=== PATIENT | female | born 1975 | race Caucasian/White ===

== ENCOUNTER 2022-06-23 14:09 | Emergency (ER) | payer MEDICAID ==
[~2022-06-23] VITALS: Ht 154.9 cm; Wt 52.0 kg
[2022-06-23 14:50] VITALS: BP 110/86
== END 2022-06-23 17:25 | disposition left against medical advice (07) ==
LOC: ER 14:09
DX: Z53.21 Procedure and treatment not carried out due to patient leaving prior to being seen by health care provider (principal)

== ENCOUNTER 2022-06-23 18:16 | Emergency (ER) | payer MEDICAID ==
[~2022-06-23] VITALS: Ht 154.9 cm; Wt 52.0 kg
[2022-06-23 19:30] LABS: HEMATOCRIT. 37.6 % (36.0-48.0); HEMOGLOBIN. 12.6 g/dL (12.0-16.0); MEAN CORPUSCULAR HEMOGLOBIN 29.7 pg (28.0-32.0); MEAN CORPUSCULAR VOLUME 88.5 fL (81.0-99.0); MEAN PLATELET VOLUME 7.4 fl (7.4-10.4); PLATELET 399 x1000/uL (130-400); RED BLOOD CELL COUNT 4.25 mill/uL (4.2-5.4); RED CELL DISTRIBUTION WIDTH 18.5 % (11.6-14.6)
[2022-06-23 19:38] LABS: CHLORIDE 105 mEq/L (98-107)
[2022-06-23 19:44] LABS: ETHANOL BLOOD 83 mg/dL
[2022-06-23 19:53] LABS: PLATELET ESTIMATE NORMAL
[2022-06-23] MEDS ORDERED: MAGNESIUM/ALUMINUM HYDROXIDE/SIMETHICONE 30ML UDC PO ONE (22:15)
[2022-06-23] MEDS ORDERED: ONDANSETRON 4MG ODT PO ONE (23:00)
[2022-06-24 00:14] LABS: *AMPHETAMINES SCREEN URINE PRESUMTIVE POSITIVE (NEGATIVE); *BARBITURATES SCREEN URINE NEGATIVE (NEGATIVE); *BENZODIAZEPINES SCREEN URINE NEGATIVE (NEGATIVE); *COCAINE SCREEN URINE NEGATIVE (NEGATIVE); CANNABINOID URINE SCREEN NEGATIVE (NEGATIVE); METHADONE URINE SCREEN NEGATIVE (NEGATIVE); OPIATES URINE SCREEN NEGATIVE (NEGATIVE); PHENCYCLIDINE URINE SCREEN NEGATIVE (NEGATIVE)
[2022-06-24 01:55] VITALS: BP 141/84
== END 2022-06-24 06:07 | disposition home or self-care (01) ==
LOC: ER 18:16
DX: F10.129 Alcohol abuse with intoxication, unspecified (principal); Y90.4 Blood alcohol level of 80-99 mg/100 ml; F15.10 Other stimulant abuse, uncomplicated
CPT/HCPCS: 36415; 80053; 80305; 80307; 80320; 80329; 85025; 99283; Q0162; G0480

== ENCOUNTER 2024-11-21 17:51 | Emergency (ER) | payer MEDICAID ==
[~2024-11-21] VITALS: Ht 167.6 cm; Wt 64.0 kg
[2024-11-21 17:53] VITALS: O2SAT 98
[2024-11-21] MEDS ORDERED: CLONIDINE 0.2MG TABLET PO ONE (18:00)
[2024-11-21 19:13] LABS: EOSINOPHILS % 6.6 % (0.0-5.0); HEMATOCRIT. 41.1 % (36.0-48.0); HEMOGLOBIN. 14.1 g/dL (12.0-16.0); LYMPHOCYTES % 29.4 % (20.0-50.0); MEAN CORPUSCULAR HEMOGLOBIN 30.3 pg (28.0-32.0); MEAN CORPUSCULAR HGB CONC 34.2 g/dL (31.0-37.0); MEAN CORPUSCULAR VOLUME 88.5 fL (81.0-99.0); MEAN PLATELET VOLUME 7.4 fl (7.4-10.4); PLATELET 328 x1000/uL (130-400); RED BLOOD CELL COUNT 4.65 mill/uL (4.2-5.4); RED CELL DISTRIBUTION WIDTH 14.4 % (11.6-14.6); WHITE BLOOD COUNT 5.5 x1000/uL (4.5-11.0)
[2024-11-21 19:19] LABS: CHLORIDE 101 mEq/L (98-107); SODIUM 141 mEq/L (136-145)
[2024-11-21 19:20] LABS: CARBON DIOXIDE 31 mEq/L (21-32)
[2024-11-21 19:21] LABS: CALCIUM 9.3 mg/dL (8.7-10.4)
[2024-11-21 19:22] LABS: HCG SCREEN NEGATIVE
[2024-11-21 19:25] LABS: CREATININE 0.8 mg/dL (0.6-1.0); GLUCOSE 136 mg/dL (70-105)
[2024-11-21 19:26] LABS: ETHANOL BLOOD < 10 mg/dL (<10); UREA NITROGEN BLOOD < 5 mg/dL (9-23)
[2024-11-21 19:28] LABS: ACETAMINOPHEN < 2 ug/mL (10-30)
[2024-11-21 19:34] LABS: POTASSIUM 2.8 mEq/L (3.5-5.1)
[2024-11-21] MEDS: CLONIDINE 0.1MG TABLET PO NR (19:58)
[2024-11-21 21:58] LABS: CLARITY URINE CLEAR (CLEAR); COLOR URINE YELLOW (YELLOW); GLUCOSE URINE NEGATIVE (NEGATIVE); KETONES URINE NEGATIVE (NEGATIVE); LEUKOCYTE ESTERASE URINE 1+ (NEGATIVE); NITRITE URINE NEGATIVE (NEGATIVE); OCCULT BLOOD URINE NEGATIVE (NEGATIVE); PH URINE 7.5 (4.5-8.0); PROTEIN URINE NEGATIVE (NEGATIVE); SPECIFIC GRAVITY URINE 1.005 (1.005-1.030)
[2024-11-21] MEDS: POTASSIUM CHLORIDE 20MEQ/PACKET PO ONE (21:59)
[2024-11-21] MEDS: FAMOTIDINE 20MG TABLET PO ONE (21:59)
[2024-11-21 22:07] LABS: *AMPHETAMINES SCREEN URINE PRESUMPTIVE POSITIVE (NEGATIVE); *BARBITURATES SCREEN URINE NEGATIVE (NEGATIVE); *BENZODIAZEPINES SCREEN URINE NEGATIVE (NEGATIVE); *COCAINE SCREEN URINE NEGATIVE (NEGATIVE); METHADONE URINE SCREEN NEGATIVE (NEGATIVE)
[2024-11-21 22:08] LABS: CANNABINOID URINE SCREEN NEGATIVE (NEGATIVE); ECSTASY MDMA SCREEN URINE NEGATIVE (NEGATIVE); OPIATES URINE SCREEN NEGATIVE (NEGATIVE); PHENCYCLIDINE URINE SCREEN NEGATIVE (NEGATIVE)
[2024-11-21 22:10] LABS: BACTERIA URINE 2+; RBC URINE 0-2 /hpf (0-2); SQUAMOUS EPITHELIAL CELL URINE 1+ /lpf (RARE/1+)
[2024-11-22] MEDS: FAMOTIDINE 20MG TABLET PO ONE (12:49)
[2024-11-22] MEDS: QUETIAPINE FUMARATE 50MG TABLET PO SCH (13:09)
[2024-11-22] MEDS: CLONIDINE 0.1MG TABLET PO SCH (16:20)
[2024-11-22 18:30] VITALS: BP 145/88; PULSE 75; RESP 16; TEMP 36.9; O2SAT 98
== END 2024-11-22 18:50 ==
LOC: ER 18:58
DX: R45.851 Suicidal ideations (principal); F15.10 Other stimulant abuse, uncomplicated; F20.9 Schizophrenia, unspecified; F32.A Depression, unspecified; Z79.899 Other long term (current) drug therapy; Z20.822 Contact with and (suspected) exposure to COVID-19
CPT/HCPCS: 80305; 80048; 81003; 80307; 80329; 80320; 84703; 85025; 36415; 99285; 87426; Z7610; G0480